=== PATIENT | female | born 1955 | race Two or more races ===

== ENCOUNTER 2024-05-12 14:46 | Emergency (ER) | payer MEDICARE, OTHER ==
[~2024-05-12] VITALS: Ht 172.7 cm; Wt 64.0 kg
[2024-05-12 15:19] VITALS: BP 140/79; TEMP 98.3; O2SAT 99
--- NOTE | 2024-05-12 15:21 | NUR ---
5TH TOE,LEFT FOOT APPEARS TO BE DISLOCATE/FRACTURED, HIT IT AGAINST A POOL STAIRWAY SHE WAS GETTING OFF THE POOL
[2024-05-12] MEDS: IBUPROFEN 600 MG TABLET PO ONE (15:30)
[2024-05-12] MEDS ORDERED: IBUPROFEN 600 MG TABLET ONE (15:52)
[2024-05-12] MEDS ORDERED: HYDROCODONE/APAP 5/325MG TABLET ONE (15:52)
[2024-05-12] MEDS: HYDROCODONE/APAP 5/325MG TABLET PO ONE (15:54)
[2024-05-12] MEDS ORDERED: LIDOCAINE 2% 20 ML MDV ONE (16:09)
[2024-05-12] MEDS: LIDOCAINE HCL/PF 1% 30 ML VIAL TP ONE (16:13)
[2024-05-12] MEDS ORDERED: IBUP-1953 PO (17:53)
== END 2024-05-12 18:02 | disposition home or self-care (01) ==
LOC: ER 15:47
DX: S92.512A Displaced fracture of proximal phalanx of left lesser toe(s), initial encounter for closed fracture (principal); Z60.2 Problems related to living alone; W23.0XXA Caught, crushed, jammed, or pinched between moving objects, initial encounter; Y93.89 Activity, other specified; Y92.89 Other specified places as the place of occurrence of the external cause; Y99.8 Other external cause status
CPT/HCPCS: 28515; 73660; 99284; J3490